=== PATIENT | female | born 1975 | race Caucasian/White ===

== ENCOUNTER 2016-03-27 08:19 | Emergency (ER) | payer BC ==
--- NOTE | 2016-03-27 09:03 | ER Document Report ---
ED General - General Chief Complaint: Abdominal Pain Stated Complaint: ABDOMINAL PAIN Time seen by provider: 08:57 Notes: This is a 41-year-old female with a history of prediabetes that presents today with sudden onset epigastric pain that started 0230 last night. She states that a full per up out of sleep, and since the pain has been constant radiating straight through to the back. Last night the pain was 10 out of 10, now pain is 3 out of 10. She describes the pain as a tearing pain; "I feel like someone is shoving a large object through a narrow canal". Denies vomiting fever chills headache changes in vision. Admits to nausea. She does state that Marfan syndrome runs in her family, and a cousin previously had an aortic root dissection. Denies prior cardiac history of myocardial infarction or stroke. Last menstrual period was March 20. Denies abnormal discharge. TRAVEL OUTSIDE OF THE [place] IN LAST 30 DAYS: No - Related Data Allergies/Adverse Reactions: No Known Allergies Allergy (Unverified 05/13/15 12:49) Past Medical History - General Information source: Patient - Social History Smoking Status: Unknown if Ever Smoked Family History: Reviewed & Not Pertinent Past Surgical History: Reports: Hx Orthopedic Surgery, Hx Tubal Ligation Review of Systems - Review of Systems Constitutional: No symptoms reported EENT: No symptoms reported Cardiovascular: No symptoms reported Respiratory: No symptoms reported Gastrointestinal: No symptoms reported - Denies diarrhea or hematochezia., See HPI, Abdominal pain Genitourinary: No symptoms reported - Denies hematuria and dysuria. Female Genitourinary: No symptoms reported Musculoskeletal: No symptoms reported Physical Exam - Vital signs Vitals: Temp Pulse Resp BP Pulse Ox 97.5 F 73 16 125/71 99 03/27/16 08:26 03/27/16 08:26 03/27/16 08:26 03/27/16 08:26 03/27/16 08:26 Interpretation: Normal - General General appearance: Appears well, Alert - HEENT Head: Normocephalic, Atraumatic - Respiratory Respiratory status: No respiratory distress Chest status: Nontender Breath sounds: Normal Chest palpation: Normal - Cardiovascular Rhythm: Regular Heart sounds: Normal auscultation Murmur: No - Abdominal Inspection: Normal. No: Caput medussa Distension: No distension Bowel sounds: Normal Tenderness: Tender - Epigastric and right upper quadrant tenderness to deep palpation.. No: Nontender - Back Back: Nontender - Extremities General upper extremity: Normal inspection, Normal color General lower extremity: Normal inspection, Normal color - Neurological Neuro grossly intact: Yes Cognition: Normal Orientation: AAOx4 Sensory: Normal - Psychological Associated symptoms: Normal affect, Normal mood - Skin Skin Temperature: Warm Skin Moisture: Dry Skin Color: Normal Course - Re-evaluation Re-evalutation: 03/27/16 09:47 Patients imaging results were shared with the patient. She was given multiple opportunities to ask questions. She stated that she would follow up with primary care physician. vital signs were reviewed and are stable. - Vital Signs Vital signs: Temp Pulse Resp BP Pulse Ox 97.5 F 67 16 102/54 L 99 03/27/16 12:25 03/27/16 12:25 03/27/16 12:25 03/27/16 12:25 03/27/16 12:25 - Laboratory Result Diagrams: 03/27/16 09:16 03/27/16 09:16 Laboratory results interpreted by me: 03/27/16 03/27/16 03/27/16 09:16 09:16 09:46 Seg Neutrophils % 85.9 H Lymphocytes % 11.2 L Monocytes % 2.7 L AST 147 H ALT 116 H Creatine Kinase 26 L Urine Blood SMALL H Ur Leukocyte Esterase TRACE H Discharge - Discharge Clinical Impression: Elevated liver enzymes Abdominal pain Qualifiers: Abdominal location: epigastric Qualified Code(s): R10.13 - Epigastric pain Condition: Stable Disposition: HOME, SELF-CARE Additional Instructions: Return to the emergency department if symptoms worsen. Follow-up with primary care physician. Follow-up with primary care physician concerning abnormal labs.
--- NOTE | 2016-03-27 09:04 | EKG REPORT ---
SEVERITY:- OTHERWISE NORMAL ECG - SINUS RHYTHM BORDERLINE RIGHT AXIS DEVIATION : Confirmed by: Terrance Gordon MD 27-Mar-2016 09:03:53
[2016-03-27 09:29] LABS: ABSOLUTE LYMPHOCYTES (AUTO) 0.8 10^3/uL (0.5-4.7); ABSOLUTE MONOCYTES (AUTO) 0.2 10^3/uL (0.1-1.4); ABSOLUTE NEUT (AUTO) 6.5 10^3/uL (1.7-8.2); BASOPHILS % (AUTO) 0.1 % (0-2); EOSINOPHILS % (AUTO) 0.1 % (0-6); HEMATOCRIT 40.8 % (36.0-47.0); HEMOGLOBIN 13.7 g/dL (12.0-15.5); HGB HCT DIFFERENCE 0.3; LYMPHOCYTES % (AUTO) 11.2 % (13-45); MEAN CORPUSCULAR HGB CONC 33.5 g/dL (32.0-36.0); MEAN CORPUSCULAR VOLUME 86 fl (80-97); MONOCYTES % (AUTO) 2.7 % (3-13); RED BLOOD COUNT 4.72 10^6/uL (3.72-5.28); SEGMENTED NEUTROPHILS % (AUTO) 85.9 % (42-78); WHITE BLOOD COUNT 7.6 10^3/uL (4.0-10.5)
[2016-03-27] MEDS ORDERED: NORMAL SALINE 1000 ML 1,000 ML IV ONE (09:37)
[2016-03-27 09:50] LABS: ALANINE AMINOTRANSFERASE 116 U/L (9-52); ALBUMIN 3.9 g/dL (3.5-5.0); ALKALINE PHOSPHATASE 97 U/L (38-126); ANION GAP 14 (5-19); ASPARTATE AMINO TRANSFERASE 147 U/L (14-36); BILIRUBIN,TOTAL 0.5 mg/dL (0.2-1.3); BLOOD UREA NITROGEN 11 mg/dL (7-20); CALCIUM 9.7 mg/dL (8.4-10.2); CARBON DIOXIDE 23 mmol/L (22-30); CHLORIDE 105 mmol/L (98-107); CREATINE KINASE 26 U/L (30-135); CREATININE RESULT 0.67 mg/dL (0.52-1.25); GLUCOSE 105 mg/dL (75-110); LIPASE 89.7 U/L (23-300); POTASSIUM 4.1 mmol/L (3.6-5.0); SODIUM 142.4 mmol/L (137-145); TOTAL PROTEIN 6.8 g/dL (6.3-8.2)
[2016-03-27 10:00] LABS: PROTHROMBIN TIME 12.7 SEC (11.4-15.4)
[2016-03-27 10:01] LABS: CREATINE KINASE MB 0.39 ng/mL (<4.55); PARTIAL THROMBOPLASTIN TIME 26.7 SEC (23.5-35.8)
[2016-03-27 10:02] LABS: TROPONIN I < 0.012 ng/mL
[2016-03-27 10:03] LABS: APPEARANCE,URINE SLIGHTLY-CLOUDY; BILIRUBIN,URINE NEGATIVE (NEGATIVE); GLUCOSE, URINE NEGATIVE (NEGATIVE); KETONES,URINE NEGATIVE (NEGATIVE); LEUKOCYTE ESTERASE,URINE TRACE (NEGATIVE); NITRITE,URINE NEGATIVE (NEGATIVE); PROTEIN,URINE NEGATIVE (NEGATIVE); URINE SPECIFIC GRAVITY 1.012; UROBILINOGEN,URINE NEGATIVE mg/dL (<2.0)
[2016-03-27 12:32] VITALS: BP 102/54
== END 2016-03-27 12:25 | disposition home or self-care (01) ==
LOC: ER 08:19
DX: R74.8 Abnormal levels of other serum enzymes (principal); R10.13 Epigastric pain; Z98.51 Tubal ligation status
CPT/HCPCS: 93005; 99284; 96360; 36415; 87086; 82553; 82550; 83690; 85025; 85610; 85730; 81025; 80053; 81001; 84484; 71010; 74177; 93010; J7030

== ENCOUNTER 2018-04-10 08:21 | Day surgery (SDC) | payer BC ==
--- NOTE | 2018-04-03 10:50 | RADIOLOGY REPORT (SQ) ---
EXAM DESCRIPTION: CHEST PA/LATERAL COMPLETED DATE/TIME: 04/03/2018 10:42 am REASON FOR STUDY: PRE-OP COMPARISON: 03/27/2016. EXAM PARAMETERS: NUMBER OF VIEWS: two views TECHNIQUE: Digital Frontal and Lateral radiographic views of the chest acquired. RADIATION DOSE: NA LIMITATIONS: none FINDINGS: LUNGS AND PLEURA: No opacities, masses or pneumothorax. No pleural effusion. MEDIASTINUM AND HILAR STRUCTURES: No masses or contour abnormalities. HEART AND VASCULAR STRUCTURES: Heart normal size. No evidence for failure. BONES: No acute findings. HARDWARE: None in the chest. OTHER: No other significant finding. IMPRESSION: NO SIGNIFICANT RADIOGRAPHIC FINDING IN THE CHEST. TECHNICAL DOCUMENTATION: JOB ID: [id number] [employer]- All Rights Reserved Reading location - IP/workstation name: [email or web address]
[2018-04-03 11:09] LABS: HEMATOCRIT 41.2 % (36.0-47.0); MEAN CORPUSCULAR HEMOGLOBIN 29.8 pg (27.0-33.4); MEAN CORPUSCULAR HGB CONC 33.9 g/dL (32.0-36.0); MEAN CORPUSCULAR VOLUME 88 fl (80-97); PLATELET COUNT 323 10^3/uL (150-450); RED BLOOD COUNT 4.67 10^6/uL (3.72-5.28); RED CELL DISTRIBUTION WIDTH 13.2 % (11.5-14.0); WHITE BLOOD COUNT 6.1 10^3/uL (4.0-10.5)
[2018-04-03 11:18] LABS: APPEARANCE,URINE SLIGHTLY-CLOUDY; BILIRUBIN,URINE NEGATIVE (NEGATIVE); COLOR,URINE YELLOW; GLUCOSE, URINE NEGATIVE (NEGATIVE); KETONES,URINE NEGATIVE (NEGATIVE); LEUKOCYTE ESTERASE,URINE LARGE (NEGATIVE); NITRITE,URINE NEGATIVE (NEGATIVE); PROTEIN,URINE NEGATIVE (NEGATIVE); URINE SPECIFIC GRAVITY 1.011; UROBILINOGEN,URINE NEGATIVE mg/dL (<2.0)
[2018-04-03 11:33] LABS: ANION GAP 10 (5-19); BLOOD UREA NITROGEN 14 mg/dL (7-20); CALCIUM 9.4 mg/dL (8.4-10.2); CARBON DIOXIDE 24 mmol/L (22-30); CHLORIDE 105 mmol/L (98-107); GLUCOSE 91 mg/dL (75-110); POTASSIUM 4.5 mmol/L (3.6-5.0); SODIUM 138.8 mmol/L (137-145)
--- NOTE | 2018-04-03 13:02 | EKG REPORT ---
SEVERITY:- BORDERLINE ECG - SINUS RHYTHM BORDERLINE RIGHT AXIS DEVIATION BORDERLINE T ABNORMALITIES, ANTERIOR LEADS : Confirmed by: Terrance Gordon MD 03-Apr-2018 13:02:17
[~2018-04-10 08:21] MED LIST: CEFAZOLIN SODIUM 2 GM in DEXTROSE 5%-WATER 100 ML IV PRN; LACTATED RINGERS 1000 ML IV PRN; LIDOCAINE 0.5% INJ-PF (5 MG/ML) 50 ML SDV SUBCUT PRN; LIDOCAINE 2% INJ-PF (20 MG/ML) 10 ML AMPUL ONE; MIDAZOLAM 2 MG/2 ML INJ ONE; PROPOFOL INJ 200 MG/20 ML VIAL IV ONE
[2018-04-10] MEDS ORDERED: FENTANYL CITRATE INJ/PF 100 MCG/2 ML AMPUL ONE (10:08)
[2018-04-10] MEDS ORDERED: BUPIVACAINE HCL 0.5 % INJ/PF 30 ML SDV ONE (10:12)
[2018-04-10] MEDS ORDERED: LIDOCAINE 1% INJ-PF (10 MG/ML) 30 ML SDV ONE (10:13)
[2018-04-10] MEDS ORDERED: ONDANSETRON HCL INJ/PF 4 MG/2 ML SDV IV PRN ×2 (10:24→10:41)
[2018-04-10] MEDS ORDERED: HYDROCODONE/ACETAMINOPHEN 5-325 MG TABLET PO PRN (10:24)
[2018-04-10] MEDS ORDERED: FENTANYL CITRATE INJ/PF 100 MCG/2 ML AMPUL IV PRN ×3 (10:41)
[2018-04-10] MEDS ORDERED: MEPERIDINE HCL/PF INJ 25 MG/1 ML DISP.SYRIN IV PRN (10:41)
[2018-04-10] MEDS ORDERED: PROMETHAZINE HCL INJ 25 MG/1 ML VIAL IV PRN ×2 (10:41)
[2018-04-10] MEDS ORDERED: DIPHENHYDRAMINE HCL 50 MG/ML VIAL IV PRN (10:41)
[2018-04-10] MEDS ORDERED: MORPHINE SULFATE 10 MG/ML INJ IV PRN (10:41)
--- NOTE | 2018-04-10 10:55 | Discharge Summary ---
Discharge Summary (SDC) - Discharge Final Diagnosis: Mass right index finger Date of Surgery: 04/10/18 Discharge Date: 04/10/18 Condition: Good Treatment or Instructions: Schedule Follow Up w/ Dr. Kip Roman @ [facility] for Surgery to be seen in 10-14 days or as scheduled [place]: [place]: [place]: May remove dressing on postop day #3, keep incision covered and dry. Ice and elevate May begin finger range of motion attempting to make full fist. Stool softener of choice when on pain medication. USE OF [id number] IBUPROFEN: Ibuprofen (Advil, Nuprin, Medipren, Motrin IB) is a medication for fever and pain control. In addition, it has anti- inflammatory effects which may be beneficial, especially in the treatment of injuries. It's best to take ibuprofen with food. Persons with ulcer disease or allergy to aspirin should notify their physician of this before taking ibuprofen. Ibuprofen can be given every four to six hours, for a total of four doses daily. Age Pain or fever dose Antiinflammatory dose 6-8 yr 200 mg (1 tab) 200 mg (1 tab) 9-11 yr 200 mg (1 tab) 200-400 mg (1-2 tab) 11-14 yr 200-400 mg (1-2 tab) 400 mg (2 tab) 15-adult 400 mg (2 tab) 600 mg (3 tab) ORAL NARCOTIC MEDICATION: You have been given a prescription for pain control. This medication is a narcotic. It's best taken with food, as nausea can result if taken on an empty stomach. Don't operate machinery or drive within six hours of taking this medication. Do not combine this medicine with alcohol, or with any medication which can cause sedation (such as cold tablets or sleeping pills) unless you get permission from the physician. Narcotics tend to cause constipation. If possible, drink plenty of fluids and eat a diet high in fiber and fruits. Please be aware that prescription narcotics also have the potential for abuse. People become addicted to these medications because of the general sense of wellbeing that they induce. This feeling along with a significant reduction in tension, anxiety, and aggression provides a stimulating seductive quality to these drugs. Once your pain is under control, we encourage you to discard your unused narcotics. Prescriptions: Hydrocodone/Acetaminophen [[place] 5-325 mg Tablet] 1 tab PO Q6 PRN #12 tablet PRN Reason: Referrals: JORDAN VIERA PA-C [Primary Care Provider] - Discharge Diet: As Tolerated Respiratory Treatments at Home: Deep Breathing/Coughing Discharge Activity: No Lifting Over 10 Pounds, No Lifting/Push/Pulling Report the Following to Your Physician Immediately: Fever over 101 Degrees, Unusual Bleeding, Redness, Swelling, Warmth
--- NOTE | 2018-04-10 10:56 | Operative Report ---
Operative Report DATE OF SURGERY: 04/10/18 PREOPERATIVE DIAGNOSIS: Right hand mass POSTOPERATIVE DIAGNOSIS: Same OPERATION: Excision right hand mass deep soft tissue SURGEON: KOURTNEY LUNA ANESTHESIA: LMAC TISSUE REMOVED OR ALTERED: Right hand mass COMPLICATIONS: None ESTIMATED BLOOD LOSS: Minimal PROCEDURE: Indication for above procedure: 43-year-old female who developed a mass in the palm of her right index finger. 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 I had discussed treatment options including alternative differential diagnosis after discussing these options patient elected to proceed with operative intervention. Procedure In Detail: Patient was seen and evaluated in the preoperative holding area. The RIGHT upper extremity was initialized and marked. Patient received 2g of Ancef IV for bacterial prophylaxis. Patient was taken back to the operative room where transferred to the operative table. Once they were adequately anesthetized a nonsterile tourniquet was placed on the upper extremity. A surgical team debriefing was performed ensuring all instrumentation was available, the surgical procedure was discussed with possible concerns reviewed. A digital block was performed utilizing 10 mL of 1% lidocaine without epinephrine. The upper extremity was prepped with chlorhexidine and alcohol and draped in a sterile fashion. A timeout was done identifying correct patient, procedure and extremity everyone in attendance agree with this and verbalized no concerns. The extremity was exsanguinated the tourniquet was inflated to 250 mmHg. Oblique skin incision was made at the level of the A1 edin. Blunt dissection was performed. Neurovascular bundles ulnarly were identified and retracted the mass was then isolated proximally and distally and excised. There is no evidence of remnants and mass was not removed in a piecemeal fashion. Gio rniquet was then deflated. Any peripheral bleeding was controlled with bipolar cautery. Wound was copiously irrigated with normal saline. Incision was closed with interrupted 4-0 nylon suture. Sponge counts, instrument counts, needle counts counts were correct. Patient was then awoken from anesthesia. Transferred from the operating room table to the operating room stretcher. There was no intraoperative complications patient tolerated procedure well stable to PACU. Postoperative plan: Patient will follow-up as scheduled for wound check. They will call with any questions or concerns.
[2018-04-10 14:47] VITALS: BP 123/73
== END 2018-04-10 12:45 | disposition home or self-care (01) ==
LOC: OROUT 08:21
PROVIDERS: ATTEND Orthopaedic Surgery
DX: D48.1 Neoplasm of uncertain behavior of connective and other soft tissue (principal); M79.641 Pain in right hand; F17.210 Nicotine dependence, cigarettes, uncomplicated
CPT/HCPCS: 93005; 36415; 85027; 81025; 80048; 81001; 88305 ×2; 71046; 93010; 26160; J2250; J0690; J3010; J3490 ×2; J2704; 1810

== ENCOUNTER → 2018-07-09 | Outpatient (CLI) | payer BC ==
[2018-07-09 13:15] LABS: ABSOLUTE LYMPHOCYTES (AUTO) 1.9 10^3/uL (0.5-4.7); ABSOLUTE MONOCYTES (AUTO) 0.3 10^3/uL (0.1-1.4); ABSOLUTE NEUT (AUTO) 3.5 10^3/uL (1.7-8.2); BASOPHILS % (AUTO) 0.4 % (0-2); EOSINOPHILS % (AUTO) 0.7 % (0-6); HEMATOCRIT 40.9 % (36.0-47.0); LYMPHOCYTES % (AUTO) 32.7 % (13-45); MEAN CORPUSCULAR HEMOGLOBIN 30.2 pg (27.0-33.4); MEAN CORPUSCULAR HGB CONC 34.2 g/dL (32.0-36.0); MEAN CORPUSCULAR VOLUME 88 fl (80-97); MONOCYTES % (AUTO) 5.7 % (3-13); PLATELET COUNT 273 10^3/uL (150-450); RED BLOOD COUNT 4.64 10^6/uL (3.72-5.28); RED CELL DISTRIBUTION WIDTH 13.4 % (11.5-14.0); SEGMENTED NEUTROPHILS % (AUTO) 60.5 % (42-78); TOTAL CELLS COUNTED % (AUTO) 100 %; WHITE BLOOD COUNT 5.8 10^3/uL (4.0-10.5)
[2018-07-09 13:25] LABS: ANION GAP 6 (5-19); BLOOD UREA NITROGEN 15 mg/dL (7-20); CARBON DIOXIDE 23 mmol/L (22-30); CHLORIDE 109 mmol/L (98-107); POTASSIUM 4.5 mmol/L (3.6-5.0)
== END ==
LOC: OD 11:21
PROVIDERS: ATTEND Specialist
DX: R01.1 Cardiac murmur, unspecified (principal); R00.2 Palpitations; R07.9 Chest pain, unspecified; R94.31 Abnormal electrocardiogram [ECG] [EKG]; E78.5 Hyperlipidemia, unspecified; Z79.899 Other long term (current) drug therapy
CPT/HCPCS: 36415; 80051; 82565; 84520; 85025

== ENCOUNTER → 2018-07-11 | Outpatient (CLI) | payer BC ==
[~2018-07-11] MED LIST changes: -CEFAZOLIN SODIUM 2 GM in DEXTROSE 5%-WATER 100 ML IV PRN; -LACTATED RINGERS 1000 ML IV PRN; -LIDOCAINE 0.5% INJ-PF (5 MG/ML) 50 ML SDV SUBCUT PRN; -LIDOCAINE 2% INJ-PF (20 MG/ML) 10 ML AMPUL ONE; -MIDAZOLAM 2 MG/2 ML INJ ONE; -PROPOFOL INJ 200 MG/20 ML VIAL IV ONE; +REGADENOSON INJ 0.4 MG/5 ML DISP.SYRIN IV ONE
--- NOTE | 2018-07-12 21:43 | DRAGON STRESS TEST REPORT ---
Intravenous Lexiscan Cardiolite stress test using single photon emmision computerized tomography. Date of procedure: 07/11/2018. Ordering Provider: Dr. Judi Jackson. Patient's status: Out Patient Indication: Chest pain. Coronary risk factors: Age Resting EKG: Sinus rhythm. No acute changes. Stress EKG: No changes of ischemia. The patient had no chest pain or discomfort, and there were no arrhythmias seen. Reason for termination: Protocol. Conclusions: Normal EKG and hemodynamic response to IV Lexiscan. Nuclear data: At rest the patient was given 14.30 millicuries of technetium 99m sestamibi injected intravenously. As per protocol rest non gated SPECT images were obtained. Subsequently the patient was given intravenous Lexiscan at a dose of 0.4 mg in 5 mL intravenously, followed by flush with normal saline. Subsequently the stress dose of 42.9 millicuries of technetium 99m sestamibi was injected intravenously. As per protocol stress gated images were obtained. Nuclear interpretation: Review of images showed that all segments of the myocardium had normal perfusion at rest, and normal perfusion post stress with IV Lexiscan. All segments of the myocardium had normal motion, contraction, and thickening by gated study. T. I D. ratio was normal at 0.98. Computer read rest, and stress left ventricular ejection fraction were 65 %, and 54 %, respectively. Visually both the stress and rest ejection fractions were normal, and greater than 60 %. Conclusion: 1. There is no scintigraphic evidence of Lexiscan induced myocardial ischemia. 2. There is no scintigraphic evidence of myocardial infarction/scar. Recommendations: Aggressive risk factor modification, and treating the underlying co- morbidities. MTDD
== END ==
LOC: RAD 08:08
PROVIDERS: ATTEND Specialist
DX: R07.9 Chest pain, unspecified (principal)
CPT/HCPCS: 93017; 78452; A9500; J2785; Q9969

== ENCOUNTER → 2018-07-16 | Outpatient (CLI) | payer BC ==
--- NOTE | 2018-07-16 08:33 | RADIOLOGY REPORT (SQ) ---
EXAM DESCRIPTION: CT CHEST WITH COMPLETED DATE/TIME: 07/16/2018 7:59 am REASON FOR STUDY: CHEST PAIN (R07.9) R07.9 CHEST PAIN, UNSPECIFIED COMPARISON: Chest films 03/27/2016, 04/03/2018 CT abdomen pelvis 03/27/2016 TECHNIQUE: CT scan of the chest performed using helical scanning technique with dynamic intravenous contrast injection. Images reviewed with lung, soft tissue and bone windows. Reconstructed coronal and sagittal MPR and MIP images reviewed. All images stored on PACS. All CT scanners at this facility use dose modulation, iterative reconstruction, and/or weight based d osing when appropriate to reduce radiation dose to as low as reasonably achievable (ALARA). [facility]: Dose Right [facility]: CareDose [facility]: Dose Right [facility]: Teradose 4D [facility]: DocSpera CONTRAST TYPE AND DOSE: contrast/concentration: Isovue 350.00 mg/ml; Total Contrast Delivered: 80.0 ml; Total Saline Delivered: 55.0 ml RENAL FUNCTION: None required. The patient is less than 50 years old. RADIATION DOSE: CT Rad equipment meets quality standard of care and radiation dose reduction techniq ues were employed. CTDIvol: 8.4 mGy. DLP: 333 mGy-cm. . LIMITATIONS: None. FINDINGS: LUNGS AND PLEURA: No opacities, nodules, masses. No pneumothorax. No effusions. HILAR AND MEDIASTINAL STRUCTURES: No identified masses or abnormal nodes. HEART AND VASCULAR STRUCTURES: No aneurysm or dissection. No central pulmonary emboli. No pericardi al effusion. HARDWARE: None in the chest. UPPER ABDOMEN: No significant findings. Limited exam. THYROID AND OTHER SOFT TISSUES: No masses. No adenopathy. BONES: No significant finding. OTHER: No other significant finding. IMPRESSION: NORMAL CT OF THE CHEST WITH IV CONTRAST. TECHNICAL DOCUMENTATION: JOB ID: [id number] Quality ID # [id number]: Final reports with documentation of one or more dose reduction techniques (e.g., Au tomated exposure control, adjustment of the mA and/or kV according to patient size, use of iterative reconstruction technique) 2010 [email or web address]- All Rights Reserved Reading location - IP/workstation name: [email or web address]
== END ==
LOC: RAD 07:26
PROVIDERS: ATTEND Specialist
DX: R07.9 Chest pain, unspecified (principal)
CPT/HCPCS: 71260

== ENCOUNTER 2019-12-09 10:28 | Day surgery (SDC) | payer BC ==
--- NOTE | 2019-12-04 12:16 | RADIOLOGY REPORT (SQ) ---
EXAM DESCRIPTION: CHEST PA/LATERAL IMAGES COMPLETED DATE/TIME: 12/04/2019 12:03 pm REASON FOR STUDY: PRE-OP COMPARISON: PA and lateral views of the chest from 04/03/2018. EXAM PARAMETERS: NUMBER OF VIEWS: Two views. TECHNIQUE: PA and lateral views of the chest were obtained. RADIATION DOSE: NA. LIMITATIONS: None. FINDINGS: LUNGS AND PLEURA: Biapical pleural and parenchymal thickening. There is no acute consolid ation, pleural effusion or pneumothorax. MEDIASTINUM AND HILAR STRUCTURES: No mediastinal or hilar contour abnormality. HEART AND VASCULAR STRUCTURES: The cardiac silhouette and pulmonary vasculature are within normal velazquez its. BONES: No acute findings. HARDWARE: None in the chest. OTHER: No other finding. IMPRESSION: No acute cardiopulmonary process. TECHNICAL DOCUMENTATION: JOB ID: [id number] 2010 [employer]- All Rights Reserved Reading location - IP/workstation name: [email or web address]
[2019-12-04 12:45] LABS: HEMATOCRIT 40.8 % (36.0-47.0); MEAN CORPUSCULAR HEMOGLOBIN 30.4 pg (27.0-33.4); MEAN CORPUSCULAR HGB CONC 34.3 g/dL (32.0-36.0); MEAN CORPUSCULAR VOLUME 89 fl (80-97); PLATELET COUNT 276 10^3/uL (150-450); RED CELL DISTRIBUTION WIDTH 14.1 % (11.5-14.0); WHITE BLOOD COUNT 5.4 10^3/uL (4.0-10.5)
[2019-12-04 12:53] LABS: APPEARANCE,URINE SLIGHTLY-CLOUDY; BILIRUBIN,URINE NEGATIVE (NEGATIVE); COLOR,URINE YELLOW; GLUCOSE, URINE NEGATIVE (NEGATIVE); KETONES,URINE NEGATIVE (NEGATIVE); LEUKOCYTE ESTERASE,URINE MODERATE (NEGATIVE); NITRITE,URINE NEGATIVE (NEGATIVE); PROTEIN,URINE NEGATIVE (NEGATIVE); URINE SPECIFIC GRAVITY 1.013; UROBILINOGEN,URINE NEGATIVE mg/dL (<2.0)
--- NOTE | 2019-12-04 20:59 | EKG REPORT ---
SEVERITY:- ABNORMAL ECG - SINUS RHYTHM PROBABLE RIGHT VENTRICULAR HYPERTROPHY : Confirmed by: Dereck Pierce MD 04-Dec-2019 20:58:44
[~2019-12-09 10:28] MED LIST changes: +CEFAZOLIN 1 GM/D5W RTU 1 GM/50 ML RTUPB IV PRN; +CEFAZOLIN 2 GM/D5W RTU 2 GM/50 ML RTUPB IV PRN; +DEXAMETHASONE SOD PHOSPHATE INJ 4 MG/1 ML VIAL ONE; +GLYCOPYRROLATE 1 MG/5 ML VIAL ONE; +LACTATED RINGERS 1000 ML IV PRN; +LIDOCAINE 0.5% INJ-PF (5 MG/ML) 50 ML SDV SUBCUT PRN; +LIDOCAINE 2% INJ-PF (20 MG/ML) 2 ML AMPUL ONE; +NEOSTIGMINE METHYLSULFATE 10 MG/10 ML VIAL ONE; +ONDANSETRON HCL INJ/PF 4 MG/2 ML SDV ONE; -REGADENOSON INJ 0.4 MG/5 ML DISP.SYRIN IV ONE; +ROCURONIUM BROMIDE INJ 50 MG/5 ML VIAL IV ONE; +SUCCINYLCHOLINE CHLORIDE INJ 200 MG/10 ML VIAL ONE
[2019-12-09] MEDS ORDERED: CEFAZOLIN 2 GM/D5W RTU 2 GM/50 ML RTUPB IV ONE (10:30)
[2019-12-09] MEDS ORDERED: FENTANYL CITRATE INJ/PF 100 MCG/2 ML AMPUL ONE (11:50)
[2019-12-09] MEDS ORDERED: KETAMINE HCL INJ 500 MG/10 ML VIAL ONE (11:50)
[2019-12-09] MEDS ORDERED: MIDAZOLAM 2 MG/2 ML INJ ONE (11:50)
[2019-12-09] MEDS ORDERED: PROPOFOL INJ 200 MG/20 ML VIAL IV ONE (11:51)
[2019-12-09] MEDS ORDERED: DIPHENHYDRAMINE HCL 50 MG/ML VIAL IV PRN (13:21)
[2019-12-09] MEDS ORDERED: HYDROMORPHONE HCL INJ/PF 2 MG/ML AMPULE IV PRN (13:21)
[2019-12-09] MEDS ORDERED: PROMETHAZINE HCL INJ 25 MG/1 ML VIAL IV PRN ×2 (13:21)
[2019-12-09] MEDS ORDERED: MEPERIDINE HCL/PF INJ 25 MG/1 ML DISP.SYRIN IV PRN (13:21)
[2019-12-09] MEDS ORDERED: FENTANYL CITRATE INJ/PF 100 MCG/2 ML AMPUL IV PRN ×3 (13:21)
[2019-12-09] MEDS ORDERED: HYDROMORPHONE HCL INJ/PF 2 MG/ML AMPULE ONE (14:52)
--- NOTE | 2019-12-09 14:54 | Operative Report ---
Operative Report DATE OF SURGERY: 12/09/19 PREOPERATIVE DIAGNOSIS: PoP DUb with menorrhagia cystocele rectocele POSTOPERATIVE DIAGNOSIS: Same plus fibroids and mesh erosion OPERATION: LAVH anterior posterior repair cycle vaginal suspension excision of mesh SURGEON: ALEXYS GARCIA ANESTHESIA: GA TISSUE REMOVED OR ALTERED: Uterus tubes mesh ESTIMATED BLOOD LOSS: Less than 300 cc PROCEDURE: Patient placed in a dorsal lithotomy position prepped draped sterile fashion. Weighted speculum is placed cervix visualized and grasped with single-tooth t enaculum Hulka tenaculum was placed single-tooth tenaculum was removed. And turned to the abdomen where a midline subumbilical incision was made trocar was introduced and insufflation the abdomen. There is appear to have several small fibroids the largest of which was in the lower uterine segment anterior. Puncture was made lateral to the first and a 5 trocar was introduced and a third suprapubically and another 5 was introduced. Left tube was then removed using harmonic scalpel by dividing the mesosalpinx and then the utero-ovarian ligament. Dissection was carried down the left side with each pedicle being divided using harmonic scalpel and this was continued to level of the ascending branch of the uterine artery on the left. Procedure was repeated on the right. Bladder flap was created with sharp and blunt dissection. And deflated and attention turned to the pelvis where the speculum was placed cervix visualized grasped a Kandi thyroid clamp the Hulka tenaculum was removed. The cul-de-sac then with sharp dissection posterior prior to peritoneum sutured posterior cuff with 2-0 Vicryl. Uterosacral clamped divided suture 2-0 Vicryl. Procedure. On the right. Sharply circumscribed anterior prior to peritoneum was entered with sharp dissection. Serial clamps the centimeters each pedicle being clamped divided and suture 2-0 Vicryl continued to the level where the above incisions were encountered uterus and tubes were removed. Pedicles were inspected and hemostasis was noted. It was closed with interrupted sutures of 2-0 Vicryl. Stasis was noted. As above the cuff on the anterior portion there was a small amount of exposed mesh this was sharply excised. The mucosa was closed with 2-0 Vicryl. The repair was accomplished by grasping the vaginal mucosa 2 cm below the urethra entered with sharp dissection and divided along until just above the cuff. Underlying vesicovaginal tissue was bluntly sharply divided. It was then plicated midline using multiple 2-0 Vicryl. Excess fat mucosa was removed defect closed running suture 2-0 Vicryl. The posterior repair was accomplished by grasping the vaginal because of the remnants of the hymenal ring. Tissue was entered crosswise. The tissue was then divided in the midline to just below the cuff. Underlying active vaginal tissue was then bluntly sharply divided. An anchor sure was placed in the right uterosacral ligament. The round was placed in the apex of the vaginal mucosa. Rectovaginal tissue was plicated midline using multiple interrupted 2-0 Vicryl. The was then suspended using the previously placed suture to the uterosacral ligament. This vaginal mucosa was removed. Vaginal defect was closed with 2-0 Vicryl. Wound was packed with a moistened pack. Urine may clear without her procedure. Patient then turned back to the abdomen where the abdomen was reinflated and the pelvis irrigated with normal saline hemostasis was noted. Deflated and trocar sleeves were removed the cephalad incision closed with 0 Vicryl in the fascia and 4-0 Vicryl subcu for the skin. The puncture wounds were closed using surgical glue. She was transported to recovery room in good condition.
[2019-12-09] MEDS ORDERED: IBUPROFEN 800 MG TABLET PO SCH (15:00)
[2019-12-09] MEDS ORDERED: ONDANSETRON HCL INJ/PF 4 MG/2 ML SDV ONE (15:22)
[2019-12-09] MEDS ORDERED: ONDANSETRON HCL 8 MG TABLET PO PRN (15:23)
[2019-12-09] MEDS ORDERED: OXYCODONE-ACETAMINOPHEN 5-325 MG TABLET PO PRN (15:23)
[2019-12-09] MEDS ORDERED: ONDANSETRON 4 MG TAB.RAPDIS PO PRN (15:47)
[2019-12-09 20:28] VITALS: BP 109/54
== END 2019-12-09 21:07 | disposition home or self-care (01) ==
LOC: OROUT 10:28 → 2N 15:45 → OROUT 21:07
PROVIDERS: ATTEND Obstetrics & Gynecology Gynecology
DX: N92.0 Excessive and frequent menstruation with regular cycle (principal); D25.9 Leiomyoma of uterus, unspecified; N72 Inflammatory disease of cervix uteri; N83.8 Other noninflammatory disorders of ovary, fallopian tube and broad ligament; T83.711A Erosion of implanted vaginal mesh to surrounding organ or tissue, initial encounter; Y83.2 Surgical operation with anastomosis, bypass or graft as the cause of abnormal reaction of the patient, or of later complication, without mention of misadventure at the time of the procedure; N81.6 Rectocele; N81.10 Cystocele, unspecified; N93.8 Other specified abnormal uterine and vaginal bleeding; Z87.891 Personal history of nicotine dependence
CPT/HCPCS: 93005; 36415; 85027; 81025; 81001; 88307 ×2; 71046; 93010; 00840; 58552; 57260; 57426; C1758; U0003; J2250; J3490 ×4; J1100; J3010; J2710; J1170; J0330; J2405; J2704; J0690; C9803; 840; 87635